=== PATIENT | male | born 1970 | race Caucasian/White ===

== ENCOUNTER 2017-05-28 06:45 | Day surgery (SDC) | payer MEDICAID ==
[~2017-05-28] VITALS: Ht 165.1 cm; Wt 74.8 kg
[2017-05-28] MEDS ORDERED: VOLTAREN100 MG PO (07:16)
[2017-05-28] MEDS ORDERED: ULTRAM50 MG PO (07:16)
[2017-05-28 07:23] VITALS: BP 143/94; Ht 165.1 cm; Wt 74.8 kg
[2017-05-28] MEDS ORDERED: HYDROCODONE-APA1 TAB PO (09:03)
--- NOTE | 2017-05-28 10:52 | NUR ---
IV DC WITH CATHER TIP INTACT
--- NOTE | 2017-05-28 14:09 | OP ---
PATIENT NAME: ZUNILDA GRAY MEDICAL RECORD: [id number] :72 LOCATION:[facility] ADMISSION DATE: SURGEON: DEANNA AMEZQUITA MD DATE OF OPERATION: 05/28/2017 PREOPERATIVE DIAGNOSIS: Medial meniscus tear of the right knee. POSTOPERATIVE DIAGNOSIS: Medial meniscus tear of the right knee. PROCEDURE: Partial arthroscopic medial meniscectomy. SURGEON: Deanna Amezquita MD ANESTHESIA: General. INTRAOPERATIVE COMPLICATIONS: None. SUMMARY OF PATHOLOGIC FINDINGS: Horizontal cleavage plane tear of the medial meniscus. OPERATIVE SUMMARY IN DETAIL: After obtaining the appropriate preoperative orthopedic surgery consent as well as anesthetic consultation, evaluation and clearance, the patient was brought to the operative suite and placed in the operating table in supine position. After general laryngeal mask airway was administered, tourniquet was placed about the proximal aspect of the left lower extremity. Left lower extremity was prepped and draped in routine sterile fashion. The left leg was elevated and exsanguinated, and tourniquet inflated to 350 mmHg. Routine inferolateral portal was established followed by superior medial portal and inferior medial portal. Diagnostic arthroscopy revealed the above findings. A combination of arthroscopic resector as well as meniscotome were utilized to debride the medial meniscus back to stable meniscal elements. Lateral compartment was pristine. Having completed this, the knee was insufflated with 30 cc of 0.25% Marcaine with epinephrine and 80 mg of Depo-Medrol. Arthroscopy portals were closed in routine interrupted fashion using 4-0 Prolene. Sterile dressings were applied. The patient was awakened and taken to the recovery room in stable condition. All final needle and sponge counts were correct. TRANSINT:[id number] Voice Confirmation ID: [id number] DOCUMENT ID: [id number] BIA QUEZADA, DEANNA SAUCEDO at 1409 CC: [id number] DICTATION DATE: 05/28/17 0906 ADULT MANAGER: 05/28/17 1128 [facility] 05/28/[address] [id number]
== END 2017-05-28 10:40 | disposition home or self-care (01) ==
LOC: D.OPS 06:45 → D.PAN 09:15 → D.OPS 09:30
DX: S83.241A Other tear of medial meniscus, current injury, right knee, initial encounter (principal); Z01.812 Encounter for preprocedural laboratory examination